=== PATIENT | male | born 1955 | race Caucasian/White ===

== ENCOUNTER 2020-08-12 18:23 | Emergency (ER) | payer OTHER ==
[2020-08-12 19:00] VITALS: BP 152/85; PULSE 87; TEMP 98.7; BMI 28.7
[2020-08-12] MEDS ORDERED: ASPIRIN 325 MG ENTERIC COATED TABLET (FP) PO ONE (19:10)
[2020-08-12] MEDS ORDERED: ALBUTEROL SO4 HFA INHALER IH ONE ×2 (19:14→19:49)
[2020-08-12] MEDS ORDERED: methylPREDNISolone NA SUCC 125 MG/2 ML VIAL IVPB ONE (19:15)
[2020-08-12 19:21] LABS: BASO % 1.2 % (0-2.0); EOS % 2.6 % (0-4.5); HEMATOCRIT 45.8 % (35.4-49); HEMOGLOBIN 15.6 GM/dl (11.7-16.9); LYMPH % 15.9 % (8-40); MCH 31.7 pg (25.7-33.7); MEAN CELL VOLUME 93.2 fl (80-96); MEAN PLT VOLUME 9.4 fl (7.5-11.1); MONO % 8.8 % (3.8-10.2); NEUT % 71.5 % (42.8-82.8); PLATELET COUNT 271 K/MM3 (134-434); RBC 4.92 M/mm3 (4.00-5.60); RDW 13.4 % (11.9-15.9); WHITE BLOOD COUNT 12.4 K/mm3 (4.0-10.8)
[2020-08-12 19:28] LABS: ACTIVATED PTT 31.7 SECONDS (25.2-36.5)
[2020-08-12 19:32] LABS: INR 1.08 (0.82-1.09)
[2020-08-12 19:33] LABS: ALBUMIN 4.1 g/dl (3.4-5.0); BILIRUBIN,TOTAL 0.6 mg/dl (0.2-1); CALCIUM 9.4 mg/dl (8.5-10); MAGNESIUM 2.1 mg/dL (1.8-2.4); POTASSIUM 4.8 mmol/L (3.5-5.1); TOT PROT 6.9 g/dl (6.4-8.2)
[2020-08-12] MEDS ORDERED: methylPREDNISolone NA SUCC 125 MG/2 ML VIAL ONE (19:49)
[2020-08-12] MEDS ORDERED: ASPIRIN COATED 81 MG TABLET.EC ONE (19:50)
== END 2020-08-12 21:51 | disposition left against medical advice (07) ==
LOC: FER 18:23
PROC: 3E033GC Introduction of Other Therapeutic Substance into Peripheral Vein, Percutaneous Approach (ICD-10-PCS; principal; 2020-08-12)
DX: R07.9 Chest pain, unspecified (principal); J44.9 Chronic obstructive pulmonary disease, unspecified
CPT/HCPCS: 36415; 71045-TC-FY; 80053; 82550; 83735; 83880; 84484; 85025; 85610; 85730; 93005; 99285-25

== ENCOUNTER 2022-10-04 06:10 | Day surgery (SDC) | payer OTHER ==
[2022-09-27 14:42] VITALS: BMI 28.5
[2022-10-04] MEDS ORDERED: BUPIVACAINE HCL 100 ML ONE (07:17)
[2022-10-04] MEDS ORDERED: MIDAZOLAM HCL 2 MG/2 ML SINGLE DOSE VIAL ONE (07:26)
[2022-10-04] MEDS ORDERED: PROPOFOL 60 ML ONE (07:26)
[2022-10-04] MEDS ORDERED: ROPIVACAINE HCL 0.5% 30ML VIAL ONE (07:30)
[2022-10-04] MEDS ORDERED: ALBUTEROL SO4 0.083% IH SOL 2.5 MG/3 ML VIAL.NEB. NEB ONE (07:52)
[2022-10-04] MEDS ORDERED: ALBUTEROL SO4 2.5/IPRATROPIUM 0.5 INH SOL 3 ML VIAL.NEB. NEB ONE (08:47)
[2022-10-04] MEDS ORDERED: oxyCODONE HCL 5 MG TABLET PO PRN (10:12)
[2022-10-04] MEDS ORDERED: ONDANSETRON 4 MG/2 ML VIAL IVPUSH PRN (10:12)
[2022-10-04] MEDS ORDERED: LACTATED RINGERS SOLUTION 1,000 ML IV SCH (10:15)
[2022-10-04 10:30] VITALS: TEMP 97.4
[2022-10-04 11:30] VITALS: RESP 16
[2022-10-04 11:38] VITALS: BP 123/67; PULSE 78
== END 2022-10-04 12:34 | disposition home or self-care (01) ==
LOC: FASU 06:10
PROVIDERS: ATTEND Orthopaedic Surgery
PROC: 0RNJ4ZZ Release Right Shoulder Joint, Percutaneous Endoscopic Approach (ICD-10-PCS; principal; 2022-10-04 08:27)
DX: M75.101 Unspecified rotator cuff tear or rupture of right shoulder, not specified as traumatic (principal)
CPT/HCPCS: 82962; 94760; C1713; C1763; C1883

== ENCOUNTER 2023-01-01 15:21 | Emergency (ER) | payer OTHER, MEDICARE ==
[2023-01-01 15:36] VITALS: BP 130/69; PULSE 93; RESP 20; TEMP 98.7; BMI 27.1
[2023-01-01 17:38] LABS: HEMOGLOBIN 12.7 G/dL (11.7-16.9); MCH 28.9 pg (25.7-33.7); MCHC 32.5 g/dl (32.0-35.9); MEAN CELL VOLUME 88.8 fl (80-96); MEAN PLT VOLUME 8.3 fl (7.5-11.1); PLATELET COUNT 385.9 10^3/uL (134-434); RBC 4.39 10^6/uL (4.00-5.60); RDW 15.7 % (11.9-15.9); WHITE BLOOD COUNT 9.7 10^3/uL (4.0-10.8)
[2023-01-01 17:47] LABS: ALBUMIN 3.5 g/dl (3.4-5.0); BILIRUBIN,TOTAL 0.3 mg/dl (0.2-1); CALCIUM 9.7 mg/dl (8.5-10); CREATININE 0.7 mg/dl (0.55-1.3); POTASSIUM 4.4 mmol/L (3.5-5.1); TOT PROT 7.1 g/dl (6.4-8.2)
== END 2023-01-01 21:12 | disposition home or self-care (01) ==
LOC: FER 15:21
DX: R06.02 Shortness of breath (principal); R05.9 Cough, unspecified; R09.3 Abnormal sputum; R91.8 Other nonspecific abnormal finding of lung field
CPT/HCPCS: 36415; 71046-TC-FY; 71260-TC; 80053; 85027; 99285-25; Q9967

== ENCOUNTER 2023-01-07 18:43 | Emergency (ER) | payer MEDICARE, OTHER ==
[2023-01-07 18:58] VITALS: BP 142/72; PULSE 92; RESP 18; TEMP 98.2; BMI 27.1
== END 2023-01-07 19:40 | disposition home or self-care (01) ==
LOC: FER 18:43
DX: M25.511 Pain in right shoulder (principal); R06.02 Shortness of breath; R91.8 Other nonspecific abnormal finding of lung field
CPT/HCPCS: 99283-25

== ENCOUNTER 2023-01-10 05:13 | Day surgery (SDC) | payer MEDICARE, OTHER ==
[2023-01-06 15:50] VITALS: BMI 27.1
[2023-01-10 10:18] LABS: BASO % 0.4 % (0-2.0); EOS % 2.7 % (0-4.5); HEMATOCRIT 39.3 % (35.4-49); HEMOGLOBIN 12.6 GM/dL (11.7-16.9); LYMPH % 10.3 % (8-40); MCH 27.8 pg (25.7-33.7); MEAN CELL VOLUME 86.7 fl (80-96); MEAN PLT VOLUME 8.2 fl (7.5-11.1); MONO % 11.1 % (3.8-10.2); NEUT % 75.5 % (42.8-82.8); PLATELET COUNT 460 10^3/uL (134-434); RBC 4.54 M/mm3 (4.00-5.60); RDW 15.1 % (11.9-15.9); WHITE BLOOD COUNT 9.9 K/mm3 (4.0-10.0)
[2023-01-10 10:26] LABS: INR 1.21 (0.83-1.09)
[2023-01-10 17:23] VITALS: RESP 20
[2023-01-10 19:01] VITALS: BP 104/77; PULSE 111; TEMP 97.9
== END 2023-01-10 18:03 | disposition home or self-care (01) ==
LOC: JRADIR 05:13
PROVIDERS: ATTEND Internal Medicine Pulmonary Disease
PROC: 0BBC3ZX Excision of Right Upper Lung Lobe, Percutaneous Approach, Diagnostic (ICD-10-PCS; principal; 2023-01-10)
DX: C34.11 Malignant neoplasm of upper lobe, right bronchus or lung (principal)
CPT/HCPCS: 32408; 36415; 71046-TC-FY; 82962; 85025; 85610; 88305-TC; 88341-TC; 88342-TC

== ENCOUNTER 2023-09-15 15:59 | Inpatient (IN) | payer OTHER, MEDICARE ==
[2023-09-15 17:31] LABS: HEMATOCRIT 41.3 % (35.4-49); HEMOGLOBIN 13.5 G/dL (11.7-16.9); MCH 31.2 pg (25.7-33.7); MCHC 32.8 g/dl (32.0-35.9); MEAN CELL VOLUME 95.3 fl (80-96); MEAN PLT VOLUME 8.2 fl (7.5-11.1); PLATELET COUNT 338.8 10^3/uL (134-434); RBC 4.33 10^6/uL (4.00-5.60); RDW 14.9 % (11.9-15.9); WHITE BLOOD COUNT 11.4 10^3/uL (4.0-10.8)
[2023-09-15 17:41] LABS: INR 1.51 (0.83-1.09); PROTHROMBIN TIME (PATIENT) 17.4 SEC (9.7-13.0)
[2023-09-15 17:43] LABS: ACTIVATED PTT 38.7 SECONDS (25.2-36.5)
[2023-09-15 17:52] LABS: ALBUMIN 3.7 g/dl (3.4-5.0); BILIRUBIN,TOTAL 0.3 mg/dl (0.2-1); CALCIUM 9.5 mg/dl (8.5-10.1); CREATININE 0.6 mg/dl (0.6-1.3); POTASSIUM 3.8 mmol/L (3.5-5.1); TOT PROT 6.5 g/dl (6.4-8.2)
[2023-09-15] MEDS ORDERED: VANCOMYCIN 1,000 MG VIAL (RESTRICTED TO ID ONLY) ONE (18:46)
[2023-09-15 19:12] LABS: URIC ACID CRYSTALS FEW /hpf (NONE SEEN)
[2023-09-15 19:12] LABS: PLATELET ESTIMATE ADEQUATE
[2023-09-15] MEDS: VANCOMYCIN 1,000 MG in DEXTROSE 5%-WATER - 250 ML IVPB ONE (20:00)
[2023-09-15] MEDS: SODIUM CHLORIDE 0.9% 1000 ML INFUS.BAG IV ONE (20:01)
[2023-09-15] MEDS ORDERED: ACETAMINOPHEN 325 MG TABLET (FP) PO PRN (23:02)
[2023-09-16] MEDS: GABAPENTIN 300 MG CAPSULE PO SCH ×2 (01:25→06:36)
[2023-09-16] MEDS: RANOLAZINE E.R. 500 MG TABLET (FP) PO SCH (01:26)
[2023-09-16] MEDS: APIXABAN 5 MG TABLET PO SCH (01:27)
[2023-09-16] MEDS: ATORVASTATIN CA 40 MG TABLET (FP) PO SCH (01:27)
[2023-09-16] MEDS: CARVEDILOL 12.5 MG TABLET (FP) PO SCH (01:27)
[2023-09-16 01:46] VITALS: BMI 27.2
[2023-09-16] MEDS: PIPERACILLIN/TAZOB 4.5 GM 4.5 GM in DEXTROSE 5%-WATER 100 ML IVPB SCH (03:05)
[2023-09-16] MEDS: LEVOTHYROXINE NA 150 MCG TABLET PO SCH (06:36)
[2023-09-16] MEDS: metFORMIN HCL 500 MG TABLET (FP) PO SCH (06:37)
[2023-09-16] MEDS ORDERED: ALBUTEROL SO4 2.5/IPRATROPIUM 0.5 INH SOL 3 ML VIAL.NEB. NEB PRN (07:00)
[2023-09-16] MEDS: VANCOMYCIN/WATER FOR INJ (PEG) 1,000 MG/200 ML BAG IVPB SCH ×2 (08:13→20:18)
[2023-09-16] MEDS ORDERED: AZITHROMYCIN IVPB 500 MG in DEXTROSE 5%-WATER - 250 ML IVPB ONE (08:27)
[2023-09-16 09:11] LABS: ALBUMIN 3.2 g/dl (3.4-5.0); BILIRUBIN,TOTAL 0.2 mg/dl (0.2-1); CALCIUM 8.8 mg/dl (8.5-10.1); CREATININE 0.5 mg/dl (0.6-1.3); POTASSIUM 4.1 mmol/L (3.5-5.1); TOT PROT 5.5 g/dl (6.4-8.2)
[2023-09-16] MEDS ORDERED: CEFTRIAXONE 1 GM in DEXTROSE 5%-WATER - 50 ML IVPB SCH (10:00)
[2023-09-16 10:07] LABS: EOS % 1.2 % (0-4.5); HEMOGLOBIN 11.6 GM/dL (11.7-16.9); MEAN PLT VOLUME 7.8 fl (7.5-11.1)
[2023-09-16 10:11] LABS: BASO % 0.3 % (0-2.0); HEMATOCRIT 35.9 % (35.4-49); LYMPH % 5.5 % (8-40); MCH 30.4 pg (25.7-33.7); MCHC 32.3 g/dl (32.0-35.9); MEAN CELL VOLUME 94.1 fl (80-96); MONO % 13.4 % (3.8-10.2); NEUT % 79.6 % (42.8-82.8); PLATELET COUNT 358 10^3/uL (134-434); RBC 3.81 M/mm3 (4.00-5.60); RDW 15.6 % (11.9-15.9); WHITE BLOOD COUNT 9.8 K/mm3 (4.0-10.0)
[2023-09-16] MEDS: EMPAGLIFLOZIN (JARDIANCE) 25 MG TABLET PO SCH (10:32)
[2023-09-16] MEDS: methylPREDNISolone NA SUCC 40 MG/1 ML VIAL IVPUSH SCH (10:54)
[2023-09-16] MEDS: INSULIN ASPART SLIDING SCALE (NOVOLOG) 1 VIAL SQ SCH (11:44)
[2023-09-16] MEDS ORDERED: ALBUTEROL SO4 0.083% IH SOL 2.5 MG/3 ML VIAL.NEB. NEB PRN (15:59)
[2023-09-16] MEDS: ALBUTEROL SO4 2.5/IPRATROPIUM 0.5 INH SOL 3 ML VIAL.NEB. NEB SCH (16:37)
[2023-09-16] MEDS: methylPREDNISolone NA SUCC 125 MG/2 ML VIAL IVPUSH SCH (20:18)
[2023-09-16] MEDS ORDERED: DOXYCYCLINE INJECTION 100 MG in DEXTROSE 5%-WATER 100 ML IVPB SCH (22:00)
[2023-09-16] MEDS: DOXYCYCLINE INJECTION 100 MG in DEXTROSE 5%-WATER 100 ML IVPB SCH (22:14)
[2023-09-17] MEDS: LEVOTHYROXINE NA 75 MCG TABLET (FP) PO SCH (06:27)
[2023-09-17 06:47] LABS: HEMATOCRIT 36.6 % (35.4-49); HEMOGLOBIN 11.6 GM/dL (11.7-16.9); MCH 30.3 pg (25.7-33.7); MCHC 31.7 g/dl (32.0-35.9); MEAN CELL VOLUME 95.5 fl (80-96); MEAN PLT VOLUME 7.8 fl (7.5-11.1); PLATELET COUNT 363 10^3/uL (134-434); RBC 3.83 M/mm3 (4.00-5.60); RDW 15.4 % (11.9-15.9); WHITE BLOOD COUNT 9.3 K/mm3 (4.0-10.0)
[2023-09-17 07:07] LABS: POTASSIUM 4.6 mmol/L (3.5-5.1)
[2023-09-17 07:14] LABS: CALCIUM 8.9 mg/dL (8.5-10.1)
[2023-09-17 07:15] LABS: BLOOD UREA NITROGEN 9.4 mg/dL (7-18)
[2023-09-17 07:18] LABS: CREATININE 0.5 mg/dL (0.55-1.3)
[2023-09-17 09:45] LABS: ANISOCYTOSIS 0; MACROCYTOSIS 0
[2023-09-17 12:22] LABS: ERYTHROCYTE SEDIMENTATION RATE 90 mm/hr (0-20)
[2023-09-17] MEDS: PIPERACILLIN/TAZOB 4.5 GM 4.5 GM in DEXTROSE 5%-WATER 100 ML IVPB SCH (14:31)
[2023-09-18 07:30] LABS: POTASSIUM 4.2 mmol/L (3.5-5.1)
[2023-09-18 07:31] LABS: HEMATOCRIT 32.9 % (35.4-49); HEMOGLOBIN 10.8 GM/dL (11.7-16.9); MCH 30.7 pg (25.7-33.7); MCHC 32.9 g/dl (32.0-35.9); MEAN CELL VOLUME 93.6 fl (80-96); MEAN PLT VOLUME 8.1 fl (7.5-11.1); PLATELET COUNT 406 10^3/uL (134-434); RBC 3.51 M/mm3 (4.00-5.60); RDW 15.2 % (11.9-15.9)
[2023-09-18 07:36] LABS: BLOOD UREA NITROGEN 15.3 mg/dL (7-18); CALCIUM 8.9 mg/dL (8.5-10.1)
[2023-09-18 07:40] LABS: CREATININE 0.6 mg/dL (0.55-1.3)
[2023-09-18 09:00] LABS: ANISOCYTOSIS 1+; MACROCYTOSIS 0
[2023-09-18] MEDS: SULFAMETHOXAZOLE/TRIMETHOPRIM 800MG/160MG D.S. TABLET PO SCH (12:45)
[2023-09-18] MEDS: PANTOPRAZOLE 40 MG TABLET PO SCH (12:45)
[2023-09-18] MEDS: traZODone HCL 50 MG TABLET (FP) PO ONE (23:58)
[2023-09-19] MEDS: methylPREDNISolone NA SUCC 40 MG/1 ML VIAL IVPUSH SCH (09:48)
[2023-09-20 13:24] VITALS: RESP 19
[2023-09-20] MEDS ORDERED: methylPREDNISolone NA SUCC 40 MG/1 ML VIAL IVPUSH SCH (14:00)
[2023-09-20 14:23] VITALS: BP 103/57; PULSE 80; TEMP 98.3
== END 2023-09-20 17:10 | disposition home or self-care (01) | DRG 196 ==
LOC: FER 15:59 → FM/S 21:16 → J4S 09-16 23:53
PROVIDERS: ADMIT Internal Medicine; ATTEND Family Medicine
DX: J84.116 Cryptogenic organizing pneumonia (principal); J96.91 Respiratory failure, unspecified with hypoxia; C34.32 Malignant neoplasm of lower lobe, left bronchus or lung; J44.0 Chronic obstructive pulmonary disease with (acute) lower respiratory infection; T45.1X5A Adverse effect of antineoplastic and immunosuppressive drugs, initial encounter; E11.9 Type 2 diabetes mellitus without complications; E03.9 Hypothyroidism, unspecified; I10 Essential (primary) hypertension; I25.10 Atherosclerotic heart disease of native coronary artery without angina pectoris; K21.9 Gastro-esophageal reflux disease without esophagitis; X58.XXXA Exposure to other specified factors, initial encounter; Y93.9 Activity, unspecified; Y92.9 Unspecified place or not applicable; I48.91 Unspecified atrial fibrillation
CPT/HCPCS: 0241U-QW; 36415; 71045-TC-FY; 80048; 80053; 81003; 81015; 82962; 83036; 83605; 84484; 85025; 85610; 85651; 85730; 86140; 86850; 86900; 86901; 87040; 87070; 87081; 87086; 87205; 87633; 87899; 93005; 94640; 94761; 99285-25